=== PATIENT | female | born 1975 | race Caucasian/White ===

== ENCOUNTER 2022-04-30 22:59 | Emergency (ER) | payer MEDICAID ==
[~2022-04-30] VITALS: Ht 154.9 cm; Wt 126.6 kg
[2022-05-01] MEDS ORDERED: ACETAMINOPHEN 325MG TABLET PO STA (00:11)
[2022-05-01 01:05] LABS: BASOPHILS % 1.1 % (0.0-2.0); EOSINOPHILS % 1.7 % (0.0-5.0); HEMATOCRIT. 30.5 % (36.0-48.0); HEMOGLOBIN. 8.7 g/dL (12.0-16.0); LYMPHOCYTES % 17.3 % (20.0-50.0); MEAN CORPUSCULAR VOLUME 66.8 fL (81.0-99.0); MEAN PLATELET VOLUME 7.6 fl (7.4-10.4); MONOCYTES % 12.5 % (2.0-8.0); NEUTROPHILS % 67.4 % (40.0-76.0); PLATELET 543 x1000/uL (130-400); RED BLOOD CELL COUNT 4.57 mill/uL (4.2-5.4); RED CELL DISTRIBUTION WIDTH 18.7 % (11.6-14.6)
[2022-05-01 01:10] LABS: CHLORIDE 103 mEq/L (98-107)
[2022-05-01 04:35] VITALS: BP 124/63
[2022-05-01 07:06] LABS: PLATELET ESTIMATE INCREASED
== END 2022-05-01 04:41 | disposition home or self-care (01) ==
LOC: ER 22:59
DX: R06.02 Shortness of breath (principal); R50.9 Fever, unspecified; Z87.891 Personal history of nicotine dependence; Z20.822 Contact with and (suspected) exposure to COVID-19
CPT/HCPCS: 36415; 71045; 80053; 83605; 84145; 84484; 85025; 87040; 87426; 87804; 93005; 99285; C9803